=== PATIENT | male | born 1945 | race Caucasian/White ===

== ENCOUNTER 2023-05-31 11:10 | Emergency (ER) | payer MEDICARE, BC ==
[~2023-05-31] VITALS: Ht 167.6 cm; Wt 77.1 kg
[2023-05-31] MEDS ORDERED: PROCHLORPERAZINE MALEATE 5 MG TABLET ONE (11:54)
[2023-05-31] MEDS ORDERED: MECLIZINE HCL 25 MG TABLET ONE (11:54)
[2023-05-31] MEDS: PROCHLORPERAZINE MALEATE 5 MG TABLET PO ONE (11:58)
[2023-05-31] MEDS: MECLIZINE HCL 25 MG TABLET PO ONE (11:58)
[2023-05-31 12:29] LABS: BASOPHILS # (AUTO) 0.1 K/UL (0.0-0.2); BASOPHILS % (AUTO) 2.1 % (0.0-2.0); EOSINOPHILS # (AUTO) 0.1 K/uL (0.0-0.7); EOSINOPHILS % (AUTO) 0.9 % (0.0-7.0); HEMATOCRIT 41.3 % (36.7-47.1); HEMOGLOBIN 13.4 g/dL (12.5-16.3); LYMPHOCYTES # (AUTO) 1.3 K/uL (0.8-4.8); LYMPHOCYTES % (AUTO) 20.5 % (20.5-51.5); MEAN CORPUSCULAR HEMOGLOBIN 28.3 uug (23.8-33.4); MEAN CORPUSCULAR HGB CONC 32 g/dL (32.5-36.3); MEAN CORPUSCULAR VOLUME 87.6 fL (73.0-96.2); MONOCYTES # (AUTO) 0.5 K/uL (0.1-1.30); MONOCYTES % (AUTO) 7.9 % (0.0-11.0); NEUTROPHILS # (AUTO) 4.5 K/uL (1.8-8.9); NEUTROPHILS % (AUTO) 68.6 % (38.5-71.5); PLATELET COUNT (AUTO) 329 K/uL (152-348); RED BLOOD CELL COUNT(AUTO) 4.72 MIL/uL (4.06-5.63); RED CELL DISTRIBUTION WIDTH 13.7 % (12.1-16.2); WHITE BLOOD COUNT (AUTO) 6.5 K/uL (3.6-10.2)
[2023-05-31 12:42] LABS: DIFFERENTIAL COMMENT 1
[2023-05-31 12:45] LABS: CALCIUM 8.7 mg/dL (8.5-10.1); CARBON DIOXIDE 28 mmol/L (21-32); CHLORIDE 108 mmol/L (98-107); CREATININE 1.1 mg/dL (0.6-1.3); GLUCOSE 107 mg/dL (74-106); MAGNESIUM 1.9 mg/dL (1.8-2.4); POTASSIUM 4.3 mmol/L (3.5-5.1); SODIUM SERUM 145 mmol/L (136-145); UREA NITROGEN, BLOOD 15 mg/dL (7-18)
[2023-05-31] MEDS ORDERED: CYAN10006 IJ (13:34)
[2023-05-31] MEDS ORDERED: MECL-159 PO (13:34)
[2023-05-31] MEDS ORDERED: PROC5TAB56 PO (13:34)
[2023-05-31] MEDS ORDERED: SYRI-29 MC (13:39)
[2023-05-31] MEDS ORDERED: CYANOCOBALAMIN 1000 MCG/ML VIAL ONE (13:40)
[2023-05-31] MEDS: CYANOCOBALAMIN 1000 MCG/ML VIAL IM ONE (14:00)
[2023-05-31 14:06] VITALS: BP 142/74; TEMP 98.3; O2SAT 97
== END 2023-05-31 14:09 | disposition home or self-care (01) ==
LOC: ER 11:10
DX: H81.20 Vestibular neuronitis, unspecified ear (principal); G43.909 Migraine, unspecified, not intractable, without status migrainosus; E78.5 Hyperlipidemia, unspecified; Z79.899 Other long term (current) drug therapy
CPT/HCPCS: 99283; 80048; 82607; 83735; 85025; 36415; 96372; J3420; J8499; A4606; A4663; J8597